=== PATIENT | male | born 2000 | race African-American/Black ===

== ENCOUNTER 2022-10-18 11:55 | Emergency (ER) | payer SELFPAY ==
[~2022-10-18] VITALS: Ht 185.4 cm; Wt 64.0 kg
[2022-10-18] MEDS ORDERED: CYCLOBENZAPRINE 10MG TABLET PO ONE (12:30)
[2022-10-18] MEDS ORDERED: KETOROLAC 30MG/ML VIAL IM ONE ×2 (12:30→12:45)
[2022-10-18 12:43] VITALS: BP 138/88
[2022-10-18] MEDS ORDERED: CYCL10TA21 MT (14:34)
[2022-10-18] MEDS ORDERED: NAPR-1176 MT (14:34)
== END 2022-10-18 14:41 | disposition home or self-care (01) ==
LOC: ER 11:55
DX: M54.50 Low back pain, unspecified (principal)
CPT/HCPCS: 96372; 99283; J1885

== ENCOUNTER 2025-05-11 21:48 | Emergency (ER) | payer MEDICAID, OTHER ==
[~2025-05-11] VITALS: Ht 180.3 cm; Wt 68.0 kg
[~2025-05-11 21:48] MED LIST: CYCL10TA21 MT; NAPR-1176 MT
[2025-05-11 22:01] VITALS: O2SAT 100
[2025-05-11] MEDS: IBUPROFEN 600MG TABLET PO ONE (22:38)
[2025-05-11] MEDS ORDERED: IBUP-2029 MT (23:47)
[2025-05-11 23:56] VITALS: BP 112/59; PULSE 63; RESP 16; TEMP 36.7; O2SAT 100
== END 2025-05-11 23:58 | disposition home or self-care (01) ==
LOC: ER 21:48
DX: S63.501A Unspecified sprain of right wrist, initial encounter (principal); M25.512 Pain in left shoulder; Z79.899 Other long term (current) drug therapy; V89.2XXA Person injured in unspecified motor-vehicle accident, traffic, initial encounter; Y93.89 Activity, other specified; Y92.89 Other specified places as the place of occurrence of the external cause; Y99.8 Other external cause status
CPT/HCPCS: 73030; 73110; 99284